=== PATIENT | female | born 1950 | race American Indian/Alaskan Native ===

== ENCOUNTER 2018-04-08 06:52 | Day surgery (SDC) | payer MEDICARE, BC ==
[2018-04-05 13:55] VITALS: BMI 31.2
[2018-04-08] MEDS ORDERED: Lactated Ringer's 500 ML IV ONE (08:58)
[2018-04-08] MEDS ORDERED: Propofol 10 mg/ml Inj (20 ML) ONE ×2 (09:00→09:18)
[2018-04-08 09:44] VITALS: TEMP 98
[2018-04-08 09:58] VITALS: RESP 12
[2018-04-08 10:54] VITALS: BP 121/58; PULSE 67; O2SAT 97
== END 2018-04-08 10:53 | disposition home or self-care (01) ==
LOC: C.ENDO 06:52
PROVIDERS: ATTEND Internal Medicine Gastroenterology
DX: Z12.11 Encounter for screening for malignant neoplasm of colon (principal); D12.2 Benign neoplasm of ascending colon; D12.0 Benign neoplasm of cecum; D12.7 Benign neoplasm of rectosigmoid junction; K57.90 Diverticulosis of intestine, part unspecified, without perforation or abscess without bleeding; K64.8 Other hemorrhoids
CPT/HCPCS: 45380; 45385; 45388; 88305; J2704; J3010; J7120